=== PATIENT | male | born 1955 | race Caucasian/White ===

== ENCOUNTER 2017-08-26 09:35 | Emergency (ER) | payer MEDICAID ==
[2017-08-26] MEDS: FLUORESCEIN STRIP LEFT EYE (10:53)
[2017-08-26] MEDS: TETRACAINE 0.5% 4 ML OPH LEFT EYE (10:54)
== END 2017-08-26 11:08 | disposition home or self-care (01) ==
LOC: FTE 09:35
DX: T15.02XA Foreign body in cornea, left eye, initial encounter (principal); F17.210 Nicotine dependence, cigarettes, uncomplicated; X58.XXXA Exposure to other specified factors, initial encounter; Y92.9 Unspecified place or not applicable
CPT/HCPCS: 65220; 99283-25

== ENCOUNTER 2017-10-18 08:54 | Emergency (ER) | payer MEDICAID ==
[2017-10-18] MEDS: KETOROLAC 30 MG INJ IM (10:12)
== END 2017-10-18 11:46 | disposition home or self-care (01) ==
LOC: FTE 11:46
DX: M54.5 Low back pain (principal); F17.210 Nicotine dependence, cigarettes, uncomplicated; I10 Essential (primary) hypertension
CPT/HCPCS: 72100; 96372; 99284-25

== ENCOUNTER 2018-01-19 06:29 | Emergency (ER) | payer MEDICAID ==
[2018-01-19] MEDS: DEXAMETHASONE 10 MG/ML 1 ML INJ PO (07:01)
[2018-01-19] MEDS: DIPHENHYDRAMINE 50 MG INJ IM (07:01)
== END 2018-01-19 08:58 | disposition home or self-care (01) ==
LOC: FTE 06:29
DX: T78.3XXA Angioneurotic edema, initial encounter (principal); I10 Essential (primary) hypertension; E11.9 Type 2 diabetes mellitus without complications; F17.210 Nicotine dependence, cigarettes, uncomplicated
CPT/HCPCS: 96372; 99284-25